=== PATIENT | female | born 1975 | race Caucasian/White ===

== ENCOUNTER 2017-03-06 10:00 | Observation (INO) | payer MEDICARE ==
--- NOTE | ~2017-03-06 | HP ---
Unit #: [id number] #: [id number] Patient: ANN-MARIE BECKER [id number] [address] [place], [place] [address] [id number] MR#: [id number] NAME: ANN-MARIE BECKER ROOM: 306 Age: 41 Sex: F Admission Date: 03/06/2017 : 1975 Attending Physician: Marcos Raymond M.D. HISTORY AND PHYSICAL REASON FOR ADMISSION Transfer from [facility] secondary to mental status change, fall, hypotension, hypoxia, syncope/facial numbness and/or tingling. Please note that currently the patient is quite somnolent. She awakens and responds appropriately to questioning; however, the majority of this HPI as well as review of systems has been elicited through chart review. The patient was seen at [facility] for chief complaint of syncope. She states that around 1:30 a.m. on day of admission she felt as though as her blood sugar was low. She got up to eat some brownies. Her legs became weak. She had a syncopal episode. She began developing numbness around her mouth. She also had numbness in her right leg and right arm and subsequently presented to [facility] for evaluation. She had smoked marijuana the night before. Her urine tox was also positive for amphetamines. She had recently been admitted December 2016 to [facility] secondary to DKA as well as NSTEMI. She does have a prior history of coronary artery bypass graft 2014. No records available at the present time. She has had prior cardiac stent placement x7 as well as coronary artery disease that has been seen and evaluated in our hospital in September of 2015 in the past. PAST MEDICAL HISTORY 1. Coronary artery bypass graft October 2015. 2. Coronary artery disease, stents x7. 3. Prior history of wound debridements lower extremity. 4. Morbid obesity. 5. Prior history of cardiac catheterization. 6. Prior history of kidney abscess. 7. Hernia/umbilical hernia surgery. 8. Tonsillectomy. 9. Adenoidectomy. 10. Uterine ablation. 11. Carpal tunnel surgery. 12. Dilatation and curettage. 13. Cholecystectomy. 14. Prior history of C-sections. 15. Underlying psychiatric history. Unit #: [id number] #: [id number] Patient: ANN-MARIE BECKER 16. Anxiety/depression. 17. Insulin-dependent diabetes, likely poorly controlled. 18. Hyperlipidemia. SOCIAL HISTORY Alcohol socially. Positive urine tox screen-amphetamines, marijuana. Substance abuse positive. Positive tobacco use daily. FAMILY HISTORY Mother with diabetes, hypertension, coronary artery disease. Father secondary to PA. Strong family history of coronary artery disease that runs on both sides of the family. ALLERGIES Penicillin, sulfa. HOME MEDICATIONS 1. Levemir. 2. NovoLog. 3. Neurontin. 4. Prozac. 5. Advil. 6. Phenergan. 7. Metoprolol. 8. Iron. 9. Mag-Ox. 10. Trazodone. 11. Folic acid. 12. Doxepin. 13. Lipitor. 14. Ziprasidone. 15. Aspirin. 16. Tegretol. REVIEW OF SYSTEMS Please see HPI. Limited secondary to current condition. PHYSICAL EXAMINATION VITAL SIGNS: Last checked here, temperature 97.5, pulse 67, respiratory rate 17, blood pressure 132/75. GENERAL APPEARANCE: Outside evaluation reveals alert, mild distress, lethargic. HEENT: Head: Normocephalic, atraumatic. CARDIOVASCULAR: S1, S2 without murmur. RESPIRATORY: Clear. GASTROINTESTINAL: Soft, nontender. LOWER EXTREMITIES: Full range of motion. PSYCHIATRIC: Cooperative but somnolent. NEUROLOGIC: No focal deficit noted. DIAGNOSTIC STUDIES LABORATORY: Studies at outside facility: Urine protein, glucose as well as ketones positive. Urine tox screen: Positive amphetamines, TCA, THC. Blood gas outside facility: pCO2 50, pO2 71, bicarb 30, pH 7.4. BMP outside facility shows sodium 132, chloride 90, creatinine 1.66, decreased GFR 34. LFTs normal. BNP elevated 273. White count 7.5, hemoglobin 12.9. IMAGING: CT head negative. CT cervical spine negative. Unit #: [id number] #: [id number] Patient: ANN-MARIE BECKER INITIAL ADMISSION DIAGNOSES 1. Facial numbness. 2. Syncope as documented from outside facility. 3. Polysubstance abuse. 4. History of severe coronary artery disease. 5. Prior CABG. 6. Diabetes, insulin dependent. 7. Hypotension on outside facility, now resolved. 8. Questionable right-sided weakness. PLAN Admission telemetry floor. Check hemoglobin A1C. Routine laboratory studies. The patient is quite somnolent at present time. We will hold sedative medications. Neurology consultation. The patient likely has an elevated BMI and MRI probably would not be feasible but we will discuss with Neurology. CTA not able to be performed secondary to elevated creatinine. We will discuss with Neurology on further disposition and/or planning in regards to possible CVA workup and/or further evaluation. Further hospital course to follow. Dictated by Gladys Gonzales M.D. SOY/kenyetta TD: 03/06/2017 11:39 JOB #: [id number] HISTORY AND PHYSICAL Page 1 of 1 X Gladys Gonzales MD X HISTORY AND PHYSICAL
--- NOTE | ~2017-03-06 | DS ---
Unit #: [id number] #: [id number] Patient: ANN-MARIE BECKER [id number] [address] [address] [id number] I MR#: [id number] NAME: ANN-MARIE BECKER ROOM: 306 Age: 41 Sex: F Admission Date: 03/06/2017 : 1975 Discharge Date: 03/06/2017 Attending Physician: Marcos Raymond M.D. DISCHARGE SUMMARY HISTORY OF PRESENT ILLNESS/HOSPITAL COURSE Please see History and Physical for details. After review and discussion with neurology services, please see Dr. Fuller's consultation report. Patient was felt to have a low probability of neurological deficit. She is otherwise ambulatory and drowsy as mentioned above but stable for discharge. She is to follow up with PCP at [place] seven to 10 days post discharge. At time of discharge, her sedative medications as mentioned above will be placed on hold. Overall, her prognosis is guarded. She lacks insight especially in regards to substance abuse and her associated comorbid conditions. Please see above for details and/or final discharge diagnosis. Dictated by... Belen Chin/sommer TD: 03/06/2017 22:03 JOB #: [id number] DISCHARGE SUMMARY Page 1 of 1 X Gladys Gonzales MD X DISCHARGE SUMMARY
--- NOTE | ~2017-03-06 | CO ---
Unit #: [id number] #: [id number] Patient: ANN-MARIE BECKER [id number] [facility] [address] [place], [place] [address] [id number] MR#: [id number] NAME: ANN-MARIE BECKER ROOM: 306 Age: 41 Sex: F Admission Date: 03/06/2017 : 1975 Attending Physician: Marcos Raymond M.D. Consultation Date: 03/06/2017 CONSULTATION REPORT REASON FOR CONSULTATION Decreased level of consciousness. PATIENT IDENTIFICATION This is a 41-year-old, right-handed, white female, who is evaluated in room 306 at [facility]. SOURCE OF INFORMATION The medical records from [place] and discussion with Dr. Gonzales. PROBLEM LIST 1. She was admitted for decreased level of consciousness. 2. Falls. 3. Hypertension. 4. Hypoxia. 5. Paresthesia. 6. Shaking. 7. She reports hyperglycemia. 8. She reports that these are medication effects. 9. Her problem list has been -- Coronary artery disease, status post CABG. 10. Wound debridement. 11. . 12. Cholecystectomy. 13. D and C. 14. Carpal tunnel. 15. Tonsillectomy. 16. Hernia repair. 17. Renal access. 18. She is a smoker. 19. Acute on chronic diastolic congestive heart failure. 20. Anxiety and depression. 21. Chronic low back pain with pain management. 22. Depression. 23. Diabetes. 24. Hypoxemia. 25. Hypertension. 26. Metabolic syndrome. 27. MRSA infection in the past. 28. Pancreatitis in the past. HISTORY OF PRESENT ILLNESS This is a 41-year-old female, who actually was transferred from Unit #: [id number] #: [id number] Patient: ANN-MARIE BECKER [place]. There is a concern that she had right-sided weakness, but when I talked to her, she states she has had left-sided give-way weakness for the last 3 weeks. I saw her coming back from the bathroom and she was fine. She is not reporting anything right now. She said that she did not feel well yesterday the whole day. In the nighttime, she thought she got worse and she started shaking, but she did not pass out. So, she went to the emergency room saying that she had weakness on the right side whereas now she think it is on the left side. She thought she was hypoglycemic. The only thing she could tell me that worried her is that in the last about a week or 10 days, she has been started on an antidepressant, but other than that, nothing has changed. There was never syncope. There were never focal seizures. There is nothing focal, numbness or tingling. She had a head CT done which was unremarkable. She cannot have CTA because she has renal issues. The other thing I could find was that her urine drug screen was positive for amphetamines, tricyclics and THC and also she is taking a lot of medication she says that probably that is causing the problem. No head injury. Nothing suggesting infection. No insect bites. She wants to go home. PAST MEDICAL HISTORY As discussed above. PAST SURGICAL HISTORY As discussed above. ALLERGIES Dilaudid, Dilantin, penicillin, and Bactrim. HOME MEDICATIONS Levemir, NovoLog, Neurontin 800 mg t.i.d., fluoxetine 40 mg daily, Advil, Phenergan, metoprolol 25 mg b.i.d., iron 65 mg, magnesium oxide, Desyrel, folic acid, doxepin, atorvastatin 80 mg, ziprasidone 160 mg at bedtime, aspirin, oxcarbazepine 600 mg at bedtime and 300 mg in the morning, clopidogrel 75 mg. FAMILY HISTORY Apparently, there is coronary artery disease, hypertension and diabetes. SOCIAL HISTORY She is a smoker despite her cardiac disease history. She acknowledges use of marijuana. She denies alcohol or drugs. Did not explain to me why the amphetamines were positive when asked if there is any particular prescription or iywa-nwr-undloja medication that she had taken, and the answer was no. She is single. REVIEW OF SYSTEMS Unit #: [id number] #: [id number] Patient: ANN-MARIE BECKER Detailed review of system was attempted. CONSTITUTIONAL: The patient denies any sleep issues, fever, or chills. She denies any recent weight issues. No sleep issues known to me. HEENT: No headaches. No double vision, earache, runny nose, or sore throat. CARDIOVASCULAR: No chest pain, clubbing, cyanosis, orthopnea, or palpitation. PULMONARY: No shortness of air, cough, or expectoration. No nausea, vomiting, diarrhea, or constipation. GENITOURINARY: No symptoms. EXTREMITIES: No problems. Other than discussed, she has chronic back problems. PSYCHIATRIC: Anxiety and depression. NEUROLOGIC: Nothing reported. No other hematologic, dermatologic, or endocrine problems. PHYSICAL EXAMINATION VITAL SIGNS: Temperature 97.5, pulse is 67, respirations 17, blood pressure 132/75, weight of 182, I doubt that weight. NEUROLOGIC: The patient is awake. She is alert. A bit slow in response, but appropriate. She knew where she was, the full date, day, month and year. She can name. She can follow commands. No right/left confusion. No finger agnosia. Cranial nerve examination demonstrates full thompson of vision to confrontation. Eye movements are conjugate. I did not see any ptosis. I did not see any nystagmus. Extraocular movements are intact. Sensation on the face and scalp are normal. Strength of muscles of facial expression normal. Hearing seemed to be intact bilaterally. Tongue was midline. Uvula was midline. Palate elevation was normal. Head turning and shoulder shrugs were unremarkable. Motor examination demonstrated normal bulk, tone. Strength was essentially 5/5. There was not anything that was give-way weakness. No pronator drift. No weakness was seen. Sensory examination is intact for soft touch and pain sensation. No extinction was seen. Romberg was not evaluated, but I saw her walking, she was fine. Reflexes 1/4. Toes are equivocal. Coordination was normal. DIAGNOSTIC STUDIES LABORATORY RESULTS: Nothing from here, but reviewed from the other facility to some degree. IMPRESSION Very nonspecific symptoms. The patient says that she has been started on antidepressant and she is taking too many medications. She feels like she is drowsy because of that or she has hypoglycemia. There is nothing active focal neurologic deficit. Her symptoms were right-sided, then left-sided and again very nonspecific, does not look like TIA, does not look like stroke, does not look like [employer] infection. This has been going on for more than 3 weeks. She wants to go home. I cannot do an MRI. Unit #: [id number] #: [id number] Patient: ANN-MARIE BECKER I cannot do a CTA. Her CT was okay, so my recommendation is to follow up with Neurology as outpatient and consider an outpatient workup including MRI and MRA, again not a TIA, very nonspecific shaking type event and lethargy, so look for other metabolic causes and call me for any questions or concerns. Nothing else to add right now, she is already on aspirin and Plavix. If there are any other issues, please let me know. Dictated by... Belen Ortiz/vale TD: 03/07/2017 02:06 JOB #: [id number] CONSULTATION REPORT Page 1 of 1 X Iram Fuller MD X CONSULTATION REPORT
[~2017-03-06 10:00] MED LIST: ADVIL200 M1 PO; ASPIRIN EC81 M1 PO; ASPIRIN81 MG PO; ATORVASTATIN CA80 MG PO; CELEXA PO; CLOPIDOGREL BIS75 MG PO; DESYREL150 M1 PO; DOXEPIN HCL50 M1 PO; DOXEPIN PO; FLUOXETINE HCL20 M1 PO; FOLIC ACID1 MG PO; GEODAN; HYDRALAZINE HCL50 MG PO; IRON18 MG PO; LEVAQUIN750 MG PO; LEVEMIR FL100 UNIT/1 SQ; LEVEMIR100 UNITS/ SUBQ; LIPITOR20 MG PO; LISINOPRIL10 MG PO; MAG-OX 400400 M1 PO; METOPROLOL TAR25 MG PO; NEURONTIN800 MG PO; NITROGLYGERIN0.4 MG SL; NOVOLOG FL100 UNIT/1 SUBQ; OXCARBAZEPINE600 MG PO; PERCOCET 5/321 UDTAB PO; PHENERGAN25 M1 PO; PHENERGAN25 MG PO; PRILOSEC40 MG PO; PROTONIX PO; TRAZODONE PO; ZIPRASIDONE HCL80 MG PO
[2017-03-06] MEDS ORDERED: FERROUS GLUCON324 M1 PO (12:07)
== END 2017-03-06 12:30 | disposition home or self-care (01) ==
LOC: C3A PCU 10:00
DX: R55 Syncope and collapse (principal); I50.33 Acute on chronic diastolic (congestive) heart failure; I25.810 Atherosclerosis of coronary artery bypass graft(s) without angina pectoris; E11.9 Type 2 diabetes mellitus without complications; I11.0 Hypertensive heart disease with heart failure; F41.9 Anxiety disorder, unspecified; F32.9 Major depressive disorder, single episode, unspecified; F17.200 Nicotine dependence, unspecified, uncomplicated; Z88.0 Allergy status to penicillin; Z88.1 Allergy status to other antibiotic agents; Z88.8 Allergy status to other drugs, medicaments and biological substances
CPT/HCPCS: G0378